=== PATIENT | female | born 1990 | race Caucasian/White ===

== ENCOUNTER 2016-05-06 11:37 | Emergency (ER) | payer OTHER, SELFPAY ==
--- NOTE | 2016-05-06 12:52 | EDDOCDS ---
Physician Documentation [facility] Name: Chichi Kim Age: 26 yrs Sex: Female : 1990 Arrival Date: 05/06/2016 Time: 11:37 Bed Triage 3 Private MD: Other - Complete Info On Cds Disposition: 05/06/16 12:39 Discharged to Home/Self Care. Impression: Pityriasis rosea. - Condition is Stable. - Discharge Instructions: Pityriasis Rosea. - Prescriptions for Zyrtec 10 mg Oral Tablet - take 1 tablet by ORAL route once daily As needed; 20 tablet. Prednisone 10 mg Oral Tablet - take 1 tablet by ORAL route as directed Day1-3:6 po,day4-5:5 po,day6-7: 4 po,day8-9:3 po,[id number]:2 po,day 12-14:1 po; 49 tablet. - Medication Reconciliation, Local Pharmacy Hours form. - [facility]; When: 4 - 5 days; Reason: Recheck today's complaints, Continuance of care. - Problem is an ongoing problem. - Symptoms are unchanged. Historical: - Allergies: no known allergies; - Home Meds: 1. none - PMHx: none; - PSHx: Tonsillectomy; - Social history: Smoking status: Patient uses tobacco products, light tobacco smoker. No barriers to communication noted, The patient speaks fluent Thai. - Family history: Not pertinent. - : The pt / caregiver states he / she is not on anticoagulants. Home medication list is obtained from the patient. - Exposure Risk Screening:: None identified. Vital Signs: 05/06 11:39 BP 128 / 79 RA Sitting (auto/lg); Pulse 82; Resp 18; Temp 98.2(O); Pulse Ox 100% on bnb R/A; Weight 90.72 kg / 200 lbs (R); Height 5 ft. 6 in. (167.64 cm) (R); Pain 8/10; 12:41 BP 132 / 83; Pulse 60; Temp 97.5(T); Pulse Ox 99% on R/A; Pain 8/10; jb5 11:39 Body Mass Index 32.28 (90.72 kg, 167.64 cm) bnb Signatures: Nura Velez, EGG CASER EGG CASER Lalita Webb,RN RN jo3 Alyssia Dubon,RN RN rs3 MTDD
--- NOTE | 2016-05-06 12:52 | EDDOCDS ---
Nurse's Notes [facility] Name: Chichi Kim Age: 26 yrs Sex: Female : 1990 Arrival Date: 05/06/2016 Time: 11:37 Bed Triage 3 Private MD: Kelsey - Complete Info On Cds Diagnosis: Pityriasis rosea Presentation: 05/06 11:40 Presenting complaint: Patient states: Rash, itching around eyelids, upper lips for 2 rs3 days. woke up with rash all over body today. Onset: The symptoms/episode began/occurred gradually. This patient has not experienced a previous allergic reaction. Anaphylaxis evaluation, the patient reports or I have noted the following symptoms which indicate a significant risk of anaphylaxis: no signs or symptoms of anaphylaxis were noted. Adult Sepsis Screening: The patient does not have new or worsening altered mentation. Patient's respiratory rate is less than 22. Systolic blood pressure is greater than 100. Patient has a qSOFA score of 0- Negative Sepsis Screen. Suicide/Homicide risk assessment- the patient denies having any suicidal and/or homicidal ideations and does not present with any other emotional, behavioral or mental health complaints. Status: Patient is not a manager of allied health services or dependent. Transition of care: patient was not received from another setting of care. 11:40 Acuity: ISADORA Level 4 rs3 11:40 Method Of Arrival: Walkin/Carried/Asstd rs3 Triage Assessment: 11:42 General: Appears in no apparent distress. Pain: Location: generalized pain. HIV rs3 screening NA for this visit Offered previously. Respiratory: Reports no respiratory complaints. Historical: - Allergies: no known allergies; - Home Meds: 1. none - PMHx: none; - PSHx: Tonsillectomy; - Social history: Smoking status: Patient uses tobacco products, light tobacco smoker. No barriers to communication noted, The patient speaks fluent Ukrainian. - Family history: Not pertinent. - : The pt / caregiver states he / she is not on anticoagulants. Home medication list is obtained from the patient. - Exposure Risk Screening:: None identified. Screenin:49 Screening information is obtained from the patient. Fall risk: No risks identified. jo3 Assistance ADL's: requires no assistance with activities of daily living. Abuse/DV Screen: The patient / caregiver reports he/she is: not in a situation that causes fear, pain or injury. Nutritional screening: No deficits noted. Advance Directives: There is no active DNR order. home support is adequate. Assessment: 12:49 General: Appears in no apparent distress, comfortable, Behavior is appropriate for age, jo3 cooperative. Neurological: No deficits noted. Level of Consciousness is awake, alert, Oriented to person, place, time. Respiratory: No deficits noted. Airway is patent Respiratory effort is even, unlabored. Vital Signs: 11:39 BP 128 / 79 RA Sitting (auto/lg); Pulse 82; Resp 18; Temp 98.2(O); Pulse Ox 100% on bnb R/A; Weight 90.72 kg (R); Height 5 ft. 6 in. (167.64 cm) (R); Pain 8/10; 12:41 BP 132 / 83; Pulse 60; Temp 97.5(T); Pulse Ox 99% on R/A; Pain 8/10; jb5 11:39 Body Mass Index 32.28 (90.72 kg, 167.64 cm) [facility] Vitals: 11:39 Log In Time: May 06, 2016 at 11:37. [facility] ED Course: 11:38 Patient visited by Harriet Kay PCA. bnb 11:38 Other - Complete Info On Cds is Private Physician. bnb 11:38 Patient moved to Waiting bnb 11:39 Patient moved to Pre RCE bnb 11:42 Triage Initiated rs3 12:18 Patient moved to Triage 3 ck1 12:28 [facility] ke 12:28 Patient visited by Nura Velez FNP. ke 12:28 Patient visited by Nura Velez FNP. ke 12:39 [facility] is Referral Physician. ke 12:42 Patient visited by Amber Unger PCA. jb5 12:49 The patient / caregiver is instructed regarding the plan of care and ED course. jo3 12:49 No IV's were initiated during this patient's visit. No procedures done that require jo3 assistance. Order Results: There are currently no results for this order. Outcome: 12:39 Discharge ordered by Provider. ke 12:49 Discharge Assessment: Patient awake, alert and oriented x 3. No cognitive and/or jo3 functional deficits noted. Patient verbalized understanding of disposition instructions. patient administered narcotics - no. The following High Risk Discharge criteria are identified: None. Discharged to home ambulatory. Condition: stable. Discharge instructions given to patient, Instructed on discharge instructions, follow up and referral plans. medication usage, Demonstrated understanding of instructions, medications, Pt was receptive of discharge instructions/ teaching. Prescriptions given X 2. No special radiology studies were completed. Property sent home with patient. 12:51 Patient left the ED. jo3 Signatures: Nura Velez, BLOOD TESTER FOWL BLOOD TESTER FOWL Chantell BellRN RN ck1 Amber Unger, BELL ATTENDANT BELL ATTENDANT jb5 Lalita Hernandez RN RN jo3 Alyssia Dubon RN RN rs3 Harriet Kay, BELL ATTENDANT BELL ATTENDANT bnb MTDD
--- NOTE | 2016-05-08 13:53 | EDDOCDS ---
Physician Documentation [facility] Name: Chichi Rico Age: 26 yrs Sex: Female : 1990 Arrival Date: 05/06/2016 Time: 11:37 Bed Triage 3 Private MD: Other - Complete Info On Cds Disposition: 05/06/16 12:39 Discharged to Home/Self Care. Impression: Pityriasis rosea. - Condition is Stable. - Discharge Instructions: Pityriasis Rosea. - Prescriptions for Zyrtec 10 mg Oral Tablet - take 1 tablet by ORAL route once daily As needed; 20 tablet. Prednisone 10 mg Oral Tablet - take 1 tablet by ORAL route as directed Day1-3:6 po,day4-5:5 po,day6-7: 4 po,day8-9:3 po,grd77-81:2 po,day 12-14:1 po; 49 tablet. - Medication Reconciliation, Local Pharmacy Hours form. - Follow up: [facility]; When: 4 - 5 days; Reason: Recheck today's complaints, Continuance of care. - Problem is an ongoing problem. - Symptoms are unchanged. Historical: - Allergies: no known allergies; - Home Meds: 1. none - PMHx: none; - PSHx: Tonsillectomy; - Social history: Smoking status: Patient uses tobacco products, light tobacco smoker. No barriers to communication noted, The patient speaks fluent Nicaraguan. - Family history: Not pertinent. - : The pt / caregiver states he / she is not on anticoagulants. Home medication list is obtained from the patient. - Exposure Risk Screening:: None identified. Vital Signs: 05/06 11:39 BP 128 / 79 RA Sitting (auto/lg); Pulse 82; Resp 18; Temp 98.2(O); Pulse Ox 100% on bnb R/A; Weight 90.72 kg / 200 lbs (R); Height 5 ft. 6 in. (167.64 cm) (R); Pain 8/10; 12:41 BP 132 / 83; Pulse 60; Temp 97.5(T); Pulse Ox 99% on R/A; Pain 8/10; jb5 11:39 Body Mass Index 32.28 (90.72 kg, 167.64 cm) bn MDM: 13:03 Financial registration complete. mm15 13:03 [facility] Payment Agreement was scanned into [employer] and attached to record. mm15 15:50 T-Sheet-- Draft Copy was scanned into [employer] and attached to record. gb Signatures: Ana Zayas, Reg Reg gb Nura Velez, SEAMLESS HOSIERY KNITTER SEAMLESS HOSIERY KNITTERLalita Lunsford RN RN jo3 Alyssia Dubon RN RN rs3 Sparkle Quevedo mm15 The chart was reviewed and I authenticate all verbal orders and agree with the evaluation and treatment provided.Attachments: 13:03 [facility] Payment Agreement mm15 15:50 T-Sheet-- Draft Copy gb Chart Complete MTDD
--- NOTE | 2016-05-08 13:53 | EDDOCDS ---
Nurse's Notes [facility] Name: Chichi Rico Age: 26 yrs Sex: Female : 1990 Arrival Date: 05/06/2016 Time: 11:37 Bed Triage 3 Private MD: Kelsey - Complete Info On Cds Diagnosis: Pityriasis rosea Presentation: 05/06 11:40 Presenting complaint: Patient states: Rash, itching around eyelids, upper lips for 2 rs3 days. woke up with rash all over body today. Onset: The symptoms/episode began/occurred gradually. This patient has not experienced a previous allergic reaction. Anaphylaxis evaluation, the patient reports or I have noted the following symptoms which indicate a significant risk of anaphylaxis: no signs or symptoms of anaphylaxis were noted. Adult Sepsis Screening: The patient does not have new or worsening altered mentation. Patient's respiratory rate is less than 22. Systolic blood pressure is greater than 100. Patient has a qSOFA score of 0- Negative Sepsis Screen. Suicide/Homicide risk assessment- the patient denies having any suicidal and/or homicidal ideations and does not present with any other emotional, behavioral or mental health complaints. Status: Patient is not a coordinator volunteer services or dependent. Transition of care: patient was not received from another setting of care. 11:40 Acuity: ISADORA Level 4 rs3 11:40 Method Of Arrival: Walkin/Carried/Asstd rs3 Triage Assessment: 11:42 General: Appears in no apparent distress. Pain: Location: generalized pain. HIV rs3 screening NA for this visit Offered previously. Respiratory: Reports no respiratory complaints. Historical: - Allergies: no known allergies; - Home Meds: 1. none - PMHx: none; - PSHx: Tonsillectomy; - Social history: Smoking status: Patient uses tobacco products, light tobacco smoker. No barriers to communication noted, The patient speaks fluent Khmer. - Family history: Not pertinent. - : The pt / caregiver states he / she is not on anticoagulants. Home medication list is obtained from the patient. - Exposure Risk Screening:: None identified. Screenin:49 Screening information is obtained from the patient. Fall risk: No risks identified. jo3 Assistance ADL's: requires no assistance with activities of daily living. Abuse/DV Screen: The patient / caregiver reports he/she is: not in a situation that causes fear, pain or injury. Nutritional screening: No deficits noted. Advance Directives: There is no active DNR order. home support is adequate. Assessment: 12:49 General: Appears in no apparent distress, comfortable, Behavior is appropriate for age, jo3 cooperative. Neurological: No deficits noted. Level of Consciousness is awake, alert, Oriented to person, place, time. Respiratory: No deficits noted. Airway is patent Respiratory effort is even, unlabored. Vital Signs: 11:39 BP 128 / 79 RA Sitting (auto/lg); Pulse 82; Resp 18; Temp 98.2(O); Pulse Ox 100% on bnb R/A; Weight 90.72 kg (R); Height 5 ft. 6 in. (167.64 cm) (R); Pain 8/10; 12:41 BP 132 / 83; Pulse 60; Temp 97.5(T); Pulse Ox 99% on R/A; Pain 8/10; jb5 11:39 Body Mass Index 32.28 (90.72 kg, 167.64 cm) [facility] Vitals: 11:39 Log In Time: May 06, 2016 at 11:37. [facility] ED Course: 11:38 Patient visited by Harriet Kay PCA. bnb 11:38 Other - Complete Info On Cds is Private Physician. bnb 11:38 Patient moved to Waiting bnb 11:39 Patient moved to Pre RCE bnb 11:42 Triage Initiated rs3 12:18 Patient moved to Triage 3 ck1 12:28 [facility] ke 12:28 Patient visited by Nura Velez FNP. ke 12:28 Patient visited by Nura Velez FNP. ke 12:39 [facility] is Referral Physician. ke 12:42 Patient visited by Amber Unger PCA. jb5 12:49 The patient / caregiver is instructed regarding the plan of care and ED course. jo3 12:49 No IV's were initiated during this patient's visit. No procedures done that require jo3 assistance. 13:03 [facility] Payment Agreement was scanned into [employer] and attached to record. mm15 14:03 Patient name changed from Chichi\S\L\S\Julio\S\ to Chichi\S\L\S\Jacky. EDMS 15:50 T-Sheet-- Draft Copy was scanned into [employer] and attached to record. gb Order Results: There are currently no results for this order. Outcome: 12:39 Discharge ordered by Provider. jose angel 12:49 Discharge Assessment: Patient awake, alert and oriented x 3. No cognitive and/or jo3 functional deficits noted. Patient verbalized understanding of disposition instructions. patient administered narcotics - no. The following High Risk Discharge criteria are identified: None. Discharged to home ambulatory. Condition: stable. Discharge instructions given to patient, Instructed on discharge instructions, follow up and referral plans. medication usage, Demonstrated understanding of instructions, medications, Pt was receptive of discharge instructions/ teaching. Prescriptions given X 2. No special radiology studies were completed. Property sent home with patient. 12:51 Patient left the ED. jo3 Signatures: Dispatcher [employer] EDAR Ana Zayas, Reg Reg gb Nura Velez, CLINICAL UNIT COORDINATOR CLINICAL UNIT COORDINATOR Chantell Bell,RN RN ck1 Amber Unger, KETTLE CLEANER KETTLE CLEANER jb5 Lalita Hernandez RN RN jo3 Alyssia Dubon RN RN rs3 Sparkle Quevedo mm15 Harriet Kay, KETTLE CLEANER KETTLE CLEANER bnb Chart Complete MTDD
--- NOTE | 2016-05-08 13:53 | EDDOCDS ---
Physician Documentation [facility] Name: Chichi Rico Age: 26 yrs Sex: Female : 1990 Arrival Date: 05/06/2016 Time: 11:37 Bed Triage 3 Private MD: Other - Complete Info On Cds Disposition: 05/06/16 12:39 Discharged to Home/Self Care. Impression: Pityriasis rosea. - Condition is Stable. - Discharge Instructions: Pityriasis Rosea. - Prescriptions for Zyrtec 10 mg Oral Tablet - take 1 tablet by ORAL route once daily As needed; 20 tablet. Prednisone 10 mg Oral Tablet - take 1 tablet by ORAL route as directed Day1-3:6 po,day4-5:5 po,day6-7: 4 po,day8-9:3 po,ohg80-95:2 po,day 12-14:1 po; 49 tablet. - Medication Reconciliation, Local Pharmacy Hours form. - Follow up: [facility]; When: 4 - 5 days; Reason: Recheck today's complaints, Continuance of care. - Problem is an ongoing problem. - Symptoms are unchanged. Historical: - Allergies: no known allergies; - Home Meds: 1. none - PMHx: none; - PSHx: Tonsillectomy; - Social history: Smoking status: Patient uses tobacco products, light tobacco smoker. No barriers to communication noted, The patient speaks fluent Slovenian. - Family history: Not pertinent. - : The pt / caregiver states he / she is not on anticoagulants. Home medication list is obtained from the patient. - Exposure Risk Screening:: None identified. Vital Signs: 05/06 11:39 BP 128 / 79 RA Sitting (auto/lg); Pulse 82; Resp 18; Temp 98.2(O); Pulse Ox 100% on bnb R/A; Weight 90.72 kg / 200 lbs (R); Height 5 ft. 6 in. (167.64 cm) (R); Pain 8/10; 12:41 BP 132 / 83; Pulse 60; Temp 97.5(T); Pulse Ox 99% on R/A; Pain 8/10; jb5 11:39 Body Mass Index 32.28 (90.72 kg, 167.64 cm) bn MDM: 13:03 Financial registration complete. mm15 13:03 [facility] Payment Agreement was scanned into [employer] and attached to record. mm15 15:50 T-Sheet-- Draft Copy was scanned into [employer] and attached to record. gb Signatures: Ana Zayas, Reg Reg gb Nura Velez, FILTER CHANGING TECHNICIAN FILTER CHANGING TECHNICIANLalita Lunsford RN RN jo3 Alyssia Dubon RN RN rs3 Sparkle Queevdo mm15 The chart was reviewed and I authenticate all verbal orders and agree with the evaluation and treatment provided.Attachments: 13:03 [facility] Payment Agreement mm15 15:50 T-Sheet-- Draft Copy gb Chart Complete MTDD
== END 2016-05-06 12:51 | disposition home or self-care (01) ==
LOC: M ED 11:37
DX: L42 Pityriasis rosea (principal); F17.210 Nicotine dependence, cigarettes, uncomplicated